=== PATIENT | male | born 1935 | race Caucasian/White ===

== ENCOUNTER 2018-11-30 19:08 | Inpatient (IN) | payer MEDICARE, MEDICAID ==
[~2018-11-30] VITALS: Ht 182.9 cm; Wt 74.8 kg
[2018-11-30] MEDS ORDERED: RANEXA500 MG ORAL (19:15)
[2018-11-30] MEDS ORDERED: RAPAFLO8 MG ORAL (19:15)
[2018-11-30] MEDS ORDERED: DEXILANT60 MG ORAL (19:15)
[2018-11-30] MEDS ORDERED: ASPIR 8181 MG ORAL (19:15)
[2018-11-30] MEDS ORDERED: DOCUSATE SODIU100 MG ORAL (19:15)
[2018-11-30] MEDS ORDERED: FERROUS SULFAT325 MG ORAL (19:15)
[2018-11-30] MEDS ORDERED: NITRO-BID30 GM TD (19:15)
[2018-11-30 19:25] VITALS: BP 112/72
--- NOTE | 2018-11-30 19:25 | NUR ---
ED Nurse Note: Patient was brought by [facility] from [facility], complaining of chest pain since this afternoon. AAO x4, VSS at this time, skin is dry, intact, warm to touch. Per patient he feels discomfort in his chest since this morning and later on it become worse. Will continue to monitor.
--- NOTE | 2018-11-30 19:27 | Emergency Room Report ---
History of Present Illness General Chief Complaint: Chest Pain Source: Patient, EMS Present Illness HPI This patient presents from a custodial facility. He has a history of peripheral vascular disease, hyperlipidemia, anxiety, dementia, GERD and hypothyroidism. He presents from a custodial facility after complaining of chest pain or one and a half hours prior to arrival. He was given nitroglycerin prior to arrival and had resolution of his symptoms. He currently has no complaints. He denies cough or congestion. He denies fever or chills. He denies nausea or vomiting. She denies abdominal pain. He has no other complaints. Allergies: Coded Allergies: No Known Allergies (Verified , 06/29/07) Patient History Past Medical History: see triage record, ulcer, GERD, GI bleed, psych hx, other - PVD, Hypothyroidism Social History: Denies: smoking, alcohol use, drug use Reviewed Nursing Documentation: PMH: Agreed; PSxH: Agreed Nursing Documentation-PMH Hx Hypertension: Yes Review of Systems All Other Systems: negative except mentioned in HPI Physical Exam Vital Signs Date Time Temp Pulse Resp B/P (MAP) Pulse Ox O2 Delivery O2 Flow Rate FiO2 11/30/18 19:04 97.9 84 22 112/72 98 Room Air Sp02 EP Interpretation: reviewed, normal General Appearance: no apparent distress, alert, GCS 15, non-toxic Head: normocephalic, atraumatic Eyes: bilateral eye normal inspection, bilateral eye PERRL ENT: hearing grossly normal, normal pharynx, no angioedema, normal voice Neck: full range of motion, supple/symm/no masses Respiratory: chest non-tender, lungs clear, normal breath sounds, no respiratory distress, no retraction, no accessory muscle use, speaking full sentences Cardiovascular #1: regular rate, rhythm, no edema Gastrointestinal: normal bowel sounds, non tender, soft, non-distended, no guarding, no rebound Rectal: deferred Musculoskeletal: back normal, normal range of motion, non-tender Neurologic: alert, oriented x3, responsive, motor strength/tone normal, sensory intact, speech normal Psychiatric: mood/affect normal, no suicidal/homicidal ideation Skin: normal color, no rash, warm/dry, well hydrated Medical Decision Making Diagnostic Impression: Primary Impression: Chest pain ER Course This patient presents with chest pain. He had complete resolution of his symptoms prior to arrival with nitroglycerin. I'm concerned this could be unstable angina. Initial workup to include chest x-ray, EKG and troponin were unremarkable. The patient will be admitted for rule out acute coronary syndrome. Laboratory Tests Test 11/30/18 19:25 11/30/18 20:15 White Blood Count 7.5 K/UL (4.8-10.8) Red Blood Count 4.39 M/UL (4.70-6.10) L Hemoglobin 12.2 G/DL (14.2-18.0) L Hematocrit 38.5 % (42.0-52.0) L Mean Corpuscular Volume 88 FL (80-99) Mean Corpuscular Hemoglobin 27.7 PG (27.0-31.0) Mean Corpuscular Hemoglobin Concent 31.6 G/DL (32.0-36.0) L Red Cell Distribution Width 19.4 % (11.6-14.8) H Platelet Count 281 K/UL (150-450) Mean Platelet Volume 5.8 FL (6.5-10.1) L Neutrophils (%) (Auto) 57.9 % (45.0-75.0) Lymphocytes (%) (Auto) 23.8 % (20.0-45.0) Monocytes (%) (Auto) 12.3 % (1.0-10.0) H Eosinophils (%) (Auto) 5.1 % (0.0-3.0) H Basophils (%) (Auto) 1.0 % (0.0-2.0) Prothrombin Time 10.9 SEC (9.30-11.50) Prothrombin Time INR 1.0 (0.9-1.1) PTT 25 SEC (23-33) Sodium Level 143 MMOL/L (136-145) Potassium Level 4.2 MMOL/L (3.5-5.1) Chloride Level 105 MMOL/L (98-107) Carbon Dioxide Level 30 MMOL/L (21-32) Anion Gap 8 mmol/L (5-15) Blood Urea Nitrogen 24 mg/dL (7-18) H Creatinine 1.2 MG/DL (0.55-1.30) Estimate Glomerular Filtration Rate mL/min (>60) Glucose Level 108 MG/DL (74-106) H Calcium Level 9.1 MG/DL (8.5-10.1) Total Bilirubin 0.4 MG/DL (0.2-1.0) Aspartate Amino Transferase (AST) 10 U/L (15-37) L Alanine Aminotransferase (ALT) 14 U/L (12-78) Alkaline Phosphatase 60 U/L (46-116) Total Creatine Kinase 27 U/L (26-308) Creatine Kinase MB 0.7 NG/ML (0.0-3.6) Creatine Kinase MB Relative Index 2.5 Troponin I 0.000 ng/mL (0.000-0.056) Total Protein 7.2 G/DL (6.4-8.2) Albumin 3.5 G/DL (3.4-5.0) Globulin 3.7 g/dL Albumin/Globulin Ratio 0.9 (1.0-2.7) L Urine Color Yellow Urine Appearance Clear Urine pH 5 (4.5-8.0) Urine Specific [place] 1.030 (1.005-1.035) Urine Protein Negative (NEGATIVE) Urine Glucose (UA) Negative (NEGATIVE) Urine Ketones 1+ (NEGATIVE) H Urine Blood Negative (NEGATIVE) Urine Nitrite Negative (NEGATIVE) Urine Bilirubin Negative (NEGATIVE) Urine Urobilinogen Normal MG/DL (0.0-1.0) Urine Leukocyte Esterase 1+ (NEGATIVE) H Urine RBC 0-2 /HPF (0 - 0) H Urine WBC 0-2 /HPF (0 - 0) Urine Squamous Epithelial Cells None /LPF (NONE/OCC) Urine Bacteria Few /HPF (NONE) EKG Diagnostic Results Rate: normal Rhythm: NSR ST Segments: no acute changes Rhythm Strip Diag. Results EP Interpretation: yes Rate: 80's Rhythm: NSR, no PVC's, no ectopy Chest X-Ray Diagnostic Results Chest X-Ray Diagnostic Results : Chest X-Ray Ordered: Yes # of Views/Limited/Complete: 1 View Indication: Chest Pain EP Interpretation: Yes Interpretation: no consolidation, no effusion, no pneumothorax, no acute cardiopulmonary disease Impression: No acute disease Electronically Signed by: DO Ho Noel Vital Signs Date Time Temp Pulse Resp B/P (MAP) Pulse Ox O2 Delivery O2 Flow Rate FiO2 11/30/18 19:04 97.9 84 22 112/72 98 Room Air Disposition: ADMITTED INPATIENT Condition: Serious Scripts Acetaminophen With Codeine (T#3) (TYLENOL #3 TAB*) Y Tab 1 TAB ORAL Q4H PRN for 10 Days, TAB Prov: Dayana Umaña MD 12/02/18 Chela Guzman DO Nov 30, 2018 19:27
[2018-11-30 19:55] LABS: ANION GAP 8 mmol/L (5-15); BLOOD UREA NITROGEN 24 mg/dL (7-18); CALCIUM 9.1 MG/DL (8.5-10.1); CARBON DIOXIDE 30 MMOL/L (21-32); CHLORIDE 105 MMOL/L (98-107); CREATININE 1.2 MG/DL (0.55-1.30); POTASSIUM 4.2 MMOL/L (3.5-5.1); SODIUM 143 MMOL/L (136-145)
[2018-11-30 19:59] LABS: EOSINOPHILS % (AUTO) 5.1 % (0.0-3.0); HEMATOCRIT 38.5 % (42.0-52.0); HEMOGLOBIN 12.2 G/DL (14.2-18.0); LYMPHOCYTES % (AUTO) 23.8 % (20.0-45.0); MEAN CORPUSCULAR VOLUME 88 FL (80-99); MONOCYTES % (AUTO) 12.3 % (1.0-10.0); NEUTROPHILS % (AUTO) 57.9 % (45.0-75.0); PLATELET COUNT 281 K/UL (150-450); RED BLOOD COUNT 4.39 M/UL (4.70-6.10); RED CELL DISTRIBUTION WIDTH 19.4 % (11.6-14.8); WHITE BLOOD COUNT 7.5 K/UL (4.8-10.8)
[2018-11-30 20:09] LABS: ALANINE AMINOTRANSFERASE 14 U/L (12-78); ALBUMIN 3.5 G/DL (3.4-5.0); ALBUMIN/GLOBULIN RATIO 0.9 (1.0-2.7); ALKALINE PHOSPHATASE 60 U/L (46-116); ASPARTATE AMINO TRANSFERASE 10 U/L (15-37); BILIRUBIN,TOTAL 0.4 MG/DL (0.2-1.0); CKMB 0.7 NG/ML (0.0-3.6); CREATINE KINASE 27 U/L (26-308)
[2018-11-30 20:51] LABS: APPEARANCE,URINE CLEAR; BILIRUBIN, URINE NEGATIVE (NEGATIVE); GLUCOSE, URINE (UA) NEGATIVE (NEGATIVE); KETONES,URINE 1+ (NEGATIVE); LEUKOCYTE ESTERASE ,URINE 1+ (NEGATIVE); NITRITE,URINE NEGATIVE (NEGATIVE); PH,URINE 5 (4.5-8.0); PROTEIN,URINE NEGATIVE (NEGATIVE); UROBILINOGEN,URINE NORMAL MG/DL (0.0-1.0)
[2018-11-30 20:54] LABS: COLOR,URINE YELLOW
--- NOTE | 2018-11-30 21:20 | NUR ---
ED Nurse Note: patient is in the bed sleeping, no acute s/s of acute disstress.
--- NOTE | 2018-11-30 21:53 | NUR ---
ED Nurse Note: tried to give report, CN asked to call in 5 min
[2018-11-30 21:54] VITALS: BP 130/75
[2018-11-30] MEDS ORDERED: Albuterol/Ipratropium 3ml neb HHN PRN (22:00)
[2018-11-30] MEDS ORDERED: dilTIAZem HCl 25mg/5ml Inj IV PRN (22:00)
[2018-11-30] MEDS ORDERED: Miralax 17gm pkt ORAL PRN (22:00)
[2018-11-30] MEDS ORDERED: Nitroglycerin Subl 0.4mg tab SL PRN (22:00)
[2018-11-30] MEDS ORDERED: Enalaprilat 2.5mg/2ml Inj IV PRN (22:00)
[2018-11-30] MEDS ORDERED: Morphine Sulfate 2mg/ml Inj(IV/IM USE ONLY) IVP PRN (22:00)
[2018-11-30] MEDS ORDERED: Ketorolac 30mg Inj IV PRN (22:00)
--- NOTE | 2018-11-30 22:00 | NUR ---
NURSE NOTES: Eda RN called to give report from ER on patient going to [phone]. Pending patient arrival on unit.
--- NOTE | 2018-11-30 22:25 | NUR ---
ED Nurse Note: Patient was admited to Tele. AAO x4, VSS at this time. Patient was transfered by ACLS protocole.
[2018-11-30 22:30] VITALS: BP 130/75
--- NOTE | 2018-11-30 22:30 | NUR ---
NURSE NOTES: Pt transferred from [facility] to [facility] with staff assist without incidence. gastroenterology nurse practitioner applied. Belongings list checked with transferring RN and patient at bedside. Pt is awake, alert, and oriented x4. Pt is on room air and breathing is even and unlabored. No acute distress noted. IV site is R AC #20g and is asymptomatic, patent, and intact. Pt provided with orientation to surroundings and hospital policies. Bed placed in lowest position with brake engaged, side rails up x3, and bed alarm on. Call light and side table placed within reach. Will continue to monitor.
[2018-11-30] MEDS ORDERED: MYRBETRIQ25 MG PO (23:51)
[2018-11-30] MEDS ORDERED: VITAMIN C500 M1 ORAL (23:51)
[2018-11-30] MEDS ORDERED: SYNTHROID25 MCG ORAL (23:51)
[2018-11-30] MEDS ORDERED: MOM30 ML ORAL (23:51)
[2018-11-30] MEDS ORDERED: ARICEPT10 MG ORAL (23:51)
[2018-11-30] MEDS ORDERED: SINGULAIR10 MG ORAL (23:51)
[2018-11-30] MEDS ORDERED: ABILIFY10 MG ORAL (23:51)
[2018-11-30] MEDS ORDERED: TYLENOL EXTRA500 MG ORAL (23:51)
[2018-11-30] MEDS ORDERED: COZAAR50 MG ORAL (23:51)
[2018-12-01] VITALS: BP 130/74
[2018-12-01 04:00] VITALS: BP 122/68
--- NOTE | 2018-12-01 06:52 | NUR ---
CASE MANAGEMENT:REVIEW 83 YR OLD MALE BIBA FROM [facility] CC: CHEST AND LT ARM PAIN SI:CHEST PAIN. ? 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
[2018-12-01 07:16] LABS: BASOPHILS % (AUTO) 0.8 % (0.0-2.0); EOSINOPHILS % (AUTO) 6.6 % (0.0-3.0); HEMATOCRIT 39.9 % (42.0-52.0); HEMOGLOBIN 12.7 G/DL (14.2-18.0); MEAN CORPUSCULAR VOLUME 89 FL (80-99); MONOCYTES % (AUTO) 11.7 % (1.0-10.0); NEUTROPHILS % (AUTO) 51.8 % (45.0-75.0); PLATELET COUNT 278 K/UL (150-450); RED CELL DISTRIBUTION WIDTH 19.7 % (11.6-14.8); WHITE BLOOD COUNT 6.6 K/UL (4.8-10.8)
--- NOTE | 2018-12-01 07:19 | NUR ---
HAND-OFF: Report given to Dany Menendez RN. Pt is sitting up in bed eating breakfast. Pt is in stable condition. No acute distress noted. Endorsed plan of care.
--- NOTE | 2018-12-01 07:20 | NUR ---
NURSE NOTES: Received report from Adamaris/RN, Patient awake eating breakfast, no distress/SOB noted. IV patent 20g SL @ right AC. Bed in low Position, Call light within reach. Will continue plan of care.
[2018-12-01 07:35] LABS: CHOLESTEROL 205 MG/DL (< 200); HDL CHOLESTEROL 60 MG/DL (40-60); TRIGLYCERIDES 53 MG/DL (30-150)
[2018-12-01 08:00] VITALS: BP 153/76
[2018-12-01] MEDS: Heparin 5000 units/ml inj SUBQ SCH ×2 (08:59→20:42)
[2018-12-01] MEDS: Aspirin Baby 81mg ORAL SCH (08:59)
--- NOTE | 2018-12-01 10:21 | Diagnostic Imaging Report ---
Indication: Chest pain Technique: One view of the chest Comparison: 10/17/2011 Findings: Inspiration is suboptimal, with crowding of the bronchovascular markings at the lung bases. The heart is borderline enlarged. It demonstrates a left ventricular hypertrophy configuration. No acute infiltrates, effusions, or congestion. Impression: No definite acute process Borderline cardiomegaly
--- NOTE | 2018-12-01 11:52 | Consultation ---
History of Present Illness General Date patient seen: Dec 01, 2018 Chief Complaint: Chest Pain Present Illness HPI GERD, GI bleed, psych hx, anxiety, dementia,, Hypothyroidism, BPH, peripheral vascular disease, presents from a [facility] facility with CC of chest pain for one and a half hours prior to arrival. He was given nitroglycerin prior to arrival and his chest pain improved. He currently has no complaints. He denies cough or congestion. Pt is at high risk of SC b/o hx of angina and PVD. He is admitted to telemetry for further evaluation. Allergies: Coded Allergies: No Known Allergies (Verified , 06/29/07) Medication History Scheduled Aripiprazole* (Abilify*), 10 MG ORAL DAILY, (Reported) Ascorbic Acid* (Vitamin C*), 500 MG ORAL DAILY, (Reported) Aspirin* (Aspir 81*), 81 MG ORAL DAILY, (Reported) Dexlansoprazole (Dexilant), 60 MG ORAL DAILY, (Reported) Docusate Sodium* (Docusate Sodium*), 100 MG ORAL THREE TIMES A DAY, (Reported) Donepezil Hcl* (Aricept*), 10 MG ORAL DAILY, (Reported) Ferrous Sulfate* (Ferrous Sulfate*), 325 MG ORAL DAILY, (Reported) Levothyroxine Sodium* (Synthroid*), 25 MCG ORAL DAILY, (Reported) Losartan Potassium* (Cozaar*), 50 MG ORAL DAILY, (Reported) Mirabegron (Myrbetriq), 25 MG PO DAILY, (Reported) Montelukast Sodium* (Singulair*), 10 MG ORAL DAILY, (Reported) Ranolazine* (Ranexa*), 500 MG ORAL EVERY 12 HOURS, (Reported) Silodosin (Rapaflo), 8 MG ORAL DAILY, (Reported) Scheduled PRN Acetaminophen* (Tylenol Extra Strength*), 500 MG ORAL Q6H PRN for Mild Pain/ Temp > 100.5, (Reported) Magnesium Hydroxide (Milk of Magnesia), 30 ML ORAL DAILY PRN for Constipation, ( Reported) Miscellaneous Medications Nitroglycerin (Nitro-Bid), 30 GM TD, (Reported) Patient History Healthcare decision maker N Resuscitation status Full Code Advanced Directive on File Past Medical/Surgical History Past Medical/Surgical History: (1) Adult hypothyroidism (2) Psychosis (3) GERD (gastroesophageal reflux disease) Review of Systems All Other Systems: negative except mentioned in HPI Physical Exam General Appearance: WD/WN, no apparent distress Lines, tubes and drains: peripheral HEENT: normocephalic, atraumatic Neck: non-tender, normal alignment Respiratory/Chest: chest wall non-tender, lungs clear Breasts: no masses Cardiovascular/Chest: normal peripheral pulses Abdomen: normal bowel sounds, non tender Skin Exam: normal pigmentation Last 24 Hour Vital Signs Date Time Temp Pulse Resp B/P (MAP) Pulse Ox O2 Delivery O2 Flow Rate FiO2 12/01/18 08:00 97.0 78 18 153/76 (101) 98 12/01/18 04:00 98.1 69 18 122/68 (86) 97 12/01/18 04:00 60 12/01/18 00:00 63 12/01/18 00:00 98.1 67 18 130/74 (92) 98 11/30/18 23:09 Nasal Cannula 2.0 11/30/18 22:30 98.1 73 18 130/75 (93) 99 11/30/18 22:20 98.0 73 15 130/75 99 Room Air 11/30/18 21:54 98.0 73 15 130/75 99 Room Air 11/30/18 19:25 84 22 Room Air 11/30/18 19:25 97.9 22 112/72 98 Room Air 11/30/18 19:04 97.9 84 22 112/72 98 Room Air Intake and Output 11/30/18 12/01/18 19:00 07:00 Output Total 400 ml Balance -400 ml Output Urine Total 400 ml # Voids 1 Laboratory Tests Test 11/30/18 19:25 11/30/18 20:15 12/01/18 05:58 White Blood Count 7.5 K/UL (4.8-10.8) 6.6 K/UL (4.8-10.8) Red Blood Count 4.39 M/UL (4.70-6.10) L 4.50 M/UL (4.70-6.10) L Hemoglobin 12.2 G/DL (14.2-18.0) L 12.7 G/DL (14.2-18.0) L Hematocrit 38.5 % (42.0-52.0) L 39.9 % (42.0-52.0) L Mean Corpuscular Volume 88 FL (80-99) 89 FL (80-99) Mean Corpuscular Hemoglobin 27.7 PG (27.0-31.0) 28.2 PG (27.0-31.0) Mean Corpuscular Hemoglobin Concent 31.6 G/DL (32.0-36.0) L 31.8 G/DL (32.0-36.0) L Red Cell Distribution Width 19.4 % (11.6-14.8) H 19.7 % (11.6-14.8) H Platelet Count 281 K/UL (150-450) 278 K/UL (150-450) Mean Platelet Volume 5.8 FL (6.5-10.1) L 6.7 FL (6.5-10.1) Neutrophils (%) (Auto) 57.9 % (45.0-75.0) 51.8 % (45.0-75.0) Lymphocytes (%) (Auto) 23.8 % (20.0-45.0) 29.0 % (20.0-45.0) Monocytes (%) (Auto) 12.3 % (1.0-10.0) H 11.7 % (1.0-10.0) H Eosinophils (%) (Auto) 5.1 % (0.0-3.0) H 6.6 % (0.0-3.0) H Basophils (%) (Auto) 1.0 % (0.0-2.0) 0.8 % (0.0-2.0) Prothrombin Time 10.9 SEC (9.30-11.50) 10.6 SEC (9.30-11.50) Prothromb Time International Ratio 1.0 (0.9-1.1) 1.0 (0.9-1.1) Activated Partial Thromboplast Time 25 SEC (23-33) 25 SEC (23-33) Sodium Level 143 MMOL/L (136-145) Potassium Level 4.2 MMOL/L (3.5-5.1) Chloride Level 105 MMOL/L (98-107) Carbon Dioxide Level 30 MMOL/L (21-32) Anion Gap 8 mmol/L (5-15) Blood Urea Nitrogen 24 mg/dL (7-18) H Creatinine 1.2 MG/DL (0.55-1.30) Estimat Glomerular Filtration Rate mL/min (>60) Glucose Level 108 MG/DL (74-106) H Calcium Level 9.1 MG/DL (8.5-10.1) Total Bilirubin 0.4 MG/DL (0.2-1.0) Aspartate Amino Transf (AST/SGOT) 10 U/L (15-37) L Alanine Aminotransferase (ALT/SGPT) 14 U/L (12-78) Alkaline Phosphatase 60 U/L (46-116) Total Creatine Kinase 27 U/L (26-308) Creatine Kinase MB 0.7 NG/ML (0.0-3.6) Creatine Kinase MB Relative Index 2.5 Troponin I 0.000 ng/mL (0.000-0.056) 0.011 ng/mL (0.000-0.056) Total Protein 7.2 G/DL (6.4-8.2) Albumin 3.5 G/DL (3.4-5.0) Globulin 3.7 g/dL Albumin/Globulin Ratio 0.9 (1.0-2.7) L Urine Color Yellow Urine Appearance Clear Urine pH 5 (4.5-8.0) Urine Specific [place] 1.030 (1.005-1.035) Urine Protein Negative (NEGATIVE) Urine Glucose (UA) Negative (NEGATIVE) Urine Ketones 1+ (NEGATIVE) H Urine Blood Negative (NEGATIVE) Urine Nitrite Negative (NEGATIVE) Urine Bilirubin Negative (NEGATIVE) Urine Urobilinogen Normal MG/DL (0.0-1.0) Urine Leukocyte Esterase 1+ (NEGATIVE) H Urine RBC 0-2 /HPF (0 - 0) H Urine WBC 0-2 /HPF (0 - 0) Urine Squamous Epithelial Cells None /LPF (NONE/OCC) Urine Bacteria Few /HPF (NONE) C-Reactive Protein, Quantitative < 0.4 mg/dL (0.00-0.90) Triglycerides Level 53 MG/DL (30-150) Cholesterol Level 205 MG/DL (< 200) H LDL Cholesterol 137 mg/dL (<100) H HDL Cholesterol 60 MG/DL (40-60) Cholesterol/HDL Ratio 3.4 (3.3-4.4) Thyroid Stimulating Hormone (TSH) 1.608 uiU/mL (0.358-3.740) Microbiology Date/Time Source Procedure Growth Status 11/30/18 20:55 Rectum Received Height (Feet): 6 Height (Inches): 10.00 Weight (Pounds): 165 Medications Current Medications Medications (Trade) Dose Ordered Sig/Anuel Route PRN Reason Start Time Stop Time Status Last Admin Dose Admin Acetaminophen (Tylenol) 650 mg Q4H PRN ORAL FEVER 11/30/18 22:00 12/30/18 21:59 Albuterol/ Ipratropium (Albuterol/ Ipratropium) 3 ml Q4H PRN HHN Shortness of Breath 11/30/18 22:00 12/05/18 21:59 Aspirin (ASA) 162 mg DAILY ORAL 12/01/18 09:00 12/31/18 08:59 12/01/18 08:59 Diltiazem HCl (Cardizem) 10 mg Q1H PRN IV heart rate more than 120, 11/30/18 22:00 12/30/18 21:59 Enalaprilat (Vasotec) 2.5 mg Q6H PRN IV sbp more than 160 11/30/18 22:00 12/30/18 21:59 Heparin Sodium (Porcine) (Heparin 5000 units/ml) 5,000 units EVERY 12 HOURS SUBQ 12/01/18 09:00 12/31/18 08:59 12/01/18 08:59 Ketorolac Tromethamine (Toradol 30mg) 30 mg Q6HR PRN IV moderate pain ( 4-6) 11/30/18 22:00 12/05/18 21:59 12/01/18 06:32 Morphine Sulfate (Morphine Sulfate) 2 mg Q4H PRN IVP severe Pain (Pain Scale 7-10) 11/30/18 22:00 12/07/18 21:59 Nitroglycerin (Ntg) 0.4 mg Q5M PRN SL Prn Chest Pain 11/30/18 22:00 12/30/18 21:59 Ondansetron HCl (Zofran) 4 mg Q6H PRN IVP Nausea & Vomiting 11/30/18 22:00 12/30/18 21:59 Polyethylene Glycol (Miralax) 17 gm DAILYPRN PRN ORAL Constipation 11/30/18 22:00 12/30/18 21:59 Temazepam (Restoril) 15 mg HSPRN PRN ORAL Insomnia 11/30/18 22:00 12/07/18 21:59 Assessment/Plan Problem List: (1) ACS (acute coronary syndrome) ICD Codes: I24.9 - Acute ischemic heart disease, unspecified SNOMED: 641263397 (2) Adult hypothyroidism ICD Codes: E03.9 - Hypothyroidism, unspecified SNOMED: 20833998 (3) Psychosis ICD Codes: F29 - Unspecified psychosis not due to a substance or known physiological condition SNOMED: 10695060 (4) GERD (gastroesophageal reflux disease) ICD Codes: K21.9 - Gastro-esophageal reflux disease without esophagitis SNOMED: 776798634 (5) BPH (benign prostatic hyperplasia) ICD Codes: N40.0 - Benign prostatic hyperplasia without lower urinary tract symptoms SNOMED: 830857115 (6) Overactive bladder ICD Codes: N32.81 - Overactive bladder SNOMED: 319811532 Assessment/Plan serial EKG, troponin echocardiogram symptomatic treatment check TSH check PSA dvt prophylaxis. Dayana Umaña MD Dec 01, 2018 11:51
[2018-12-01 12:00] VITALS: BP 138/83
--- NOTE | 2018-12-01 14:20 | NUR ---
PT EVALUATION NOTE Patient seen for initial evaluation, see complete evaluation for details. Patient presents with generalized weakness and mobility deficits. Patient will benefit from skilled inpatient PT intervention to address strength, balance, safety and functional mobility. Recommend return to SNF once cleared by MD. DME needs provided by SNF. Addendum: 12/01/18 at 1449 by FRANCES MARIE PT Amended: Links added.
[2018-12-01 16:00] VITALS: BP 141/80
--- NOTE | 2018-12-01 16:51 | Cardiology Progress Note ---
Assessment/Plan Assessment/Plan chest pain , lower post rib pain / tenderness htn hyperlipidemia dvt hs likey pain m/s as can be reproduced on palpation the post rib left torp neg ekg neg will have rib sereies echo venous duplex if neg woudl nto pursuit furtehr cardiac jones [id number] Objective Last 24 Hour Vital Signs Date Time Temp Pulse Resp B/P (MAP) Pulse Ox O2 Delivery O2 Flow Rate FiO2 12/01/18 12:00 97.9 73 20 138/83 (101) 97 12/01/18 09:00 Room Air 12/01/18 08:00 97.0 78 18 153/76 (101) 98 12/01/18 04:00 98.1 69 18 122/68 (86) 97 12/01/18 04:00 60 12/01/18 00:00 63 12/01/18 00:00 98.1 67 18 130/74 (92) 98 11/30/18 23:09 Nasal Cannula 2.0 11/30/18 22:30 98.1 73 18 130/75 (93) 99 11/30/18 22:20 98.0 73 15 130/75 99 Room Air 11/30/18 21:54 98.0 73 15 130/75 99 Room Air 11/30/18 19:25 84 22 Room Air 11/30/18 19:25 97.9 22 112/72 98 Room Air 11/30/18 19:04 97.9 84 22 112/72 98 Room Air Intake and Output 11/30/18 12/01/18 19:00 07:00 Output Total 400 ml Balance -400 ml Output Urine Total 400 ml # Voids 1 Laboratory Tests Test 11/30/18 19:25 11/30/18 20:15 12/01/18 05:58 White Blood Count 7.5 K/UL (4.8-10.8) 6.6 K/UL (4.8-10.8) Red Blood Count 4.39 M/UL (4.70-6.10) L 4.50 M/UL (4.70-6.10) L Hemoglobin 12.2 G/DL (14.2-18.0) L 12.7 G/DL (14.2-18.0) L Hematocrit 38.5 % (42.0-52.0) L 39.9 % (42.0-52.0) L Mean Corpuscular Volume 88 FL (80-99) 89 FL (80-99) Mean Corpuscular Hemoglobin 27.7 PG (27.0-31.0) 28.2 PG (27.0-31.0) Mean Corpuscular Hemoglobin Concent 31.6 G/DL (32.0-36.0) L 31.8 G/DL (32.0-36.0) L Red Cell Distribution Width 19.4 % (11.6-14.8) H 19.7 % (11.6-14.8) H Platelet Count 281 K/UL (150-450) 278 K/UL (150-450) Mean Platelet Volume 5.8 FL (6.5-10.1) L 6.7 FL (6.5-10.1) Neutrophils (%) (Auto) 57.9 % (45.0-75.0) 51.8 % (45.0-75.0) Lymphocytes (%) (Auto) 23.8 % (20.0-45.0) 29.0 % (20.0-45.0) Monocytes (%) (Auto) 12.3 % (1.0-10.0) H 11.7 % (1.0-10.0) H Eosinophils (%) (Auto) 5.1 % (0.0-3.0) H 6.6 % (0.0-3.0) H Basophils (%) (Auto) 1.0 % (0.0-2.0) 0.8 % (0.0-2.0) Prothrombin Time 10.9 SEC (9.30-11.50) 10.6 SEC (9.30-11.50) Prothromb Time International Ratio 1.0 (0.9-1.1) 1.0 (0.9-1.1) Activated Partial Thromboplast Time 25 SEC (23-33) 25 SEC (23-33) Sodium Level 143 MMOL/L (136-145) Potassium Level 4.2 MMOL/L (3.5-5.1) Chloride Level 105 MMOL/L (98-107) Carbon Dioxide Level 30 MMOL/L (21-32) Anion Gap 8 mmol/L (5-15) Blood Urea Nitrogen 24 mg/dL (7-18) H Creatinine 1.2 MG/DL (0.55-1.30) Estimat Glomerular Filtration Rate mL/min (>60) Glucose Level 108 MG/DL (74-106) H Calcium Level 9.1 MG/DL (8.5-10.1) Total Bilirubin 0.4 MG/DL (0.2-1.0) Aspartate Amino Transf (AST/SGOT) 10 U/L (15-37) L Alanine Aminotransferase (ALT/SGPT) 14 U/L (12-78) Alkaline Phosphatase 60 U/L (46-116) Total Creatine Kinase 27 U/L (26-308) Creatine Kinase MB 0.7 NG/ML (0.0-3.6) Creatine Kinase MB Relative Index 2.5 Troponin I 0.000 ng/mL (0.000-0.056) 0.011 ng/mL (0.000-0.056) Total Protein 7.2 G/DL (6.4-8.2) Albumin 3.5 G/DL (3.4-5.0) Globulin 3.7 g/dL Albumin/Globulin Ratio 0.9 (1.0-2.7) L Urine Color Yellow Urine Appearance Clear Urine pH 5 (4.5-8.0) Urine Specific [place] 1.030 (1.005-1.035) Urine Protein Negative (NEGATIVE) Urine Glucose (UA) Negative (NEGATIVE) Urine Ketones 1+ (NEGATIVE) H Urine Blood Negative (NEGATIVE) Urine Nitrite Negative (NEGATIVE) Urine Bilirubin Negative (NEGATIVE) Urine Urobilinogen Normal MG/DL (0.0-1.0) Urine Leukocyte Esterase 1+ (NEGATIVE) H Urine RBC 0-2 /HPF (0 - 0) H Urine WBC 0-2 /HPF (0 - 0) Urine Squamous Epithelial Cells None /LPF (NONE/OCC) Urine Bacteria Few /HPF (NONE) C-Reactive Protein, Quantitative < 0.4 mg/dL (0.00-0.90) Triglycerides Level 53 MG/DL (30-150) Cholesterol Level 205 MG/DL (< 200) H LDL Cholesterol 137 mg/dL (<100) H HDL Cholesterol 60 MG/DL (40-60) Cholesterol/HDL Ratio 3.4 (3.3-4.4) Thyroid Stimulating Hormone (TSH) 1.608 uiU/mL (0.358-3.740) Microbiology Date/Time Source Procedure Growth Status 11/30/18 20:55 Rectum Received Migue Sr MD Dec 01, 2018 16:51
--- NOTE | 2018-12-01 17:00 | History & Physical ---
History and Physical History & Physicial Dictated for Int Med-DR Carlos no. [id number]. Rodriguez Rodríguez MD Dec 01, 2018 17:00
--- NOTE | 2018-12-01 18:16 | Cardiology Report ---
APPROVED REPORT EXAM: Two-dimensional and M-mode echocardiogram with Doppler and color Doppler. INDICATION LV FUNCTION M-Mode DIMENSIONS IVSd0.9 (0.7-1.1cm)Left Atrium (MM)4.4 (1.6-4.0cm) LVDd5.4 (3.5-5.6cm)Aortic Root3.0 (2.0-3.7cm) PWd0.9 (0.7-1.1cm)Aortic Cusp Exc.1.4 (1.5-2.0cm) IVSs1.3 cm LVDs3.0 (2.5-4.0cm) PWs1.7 cm Normal left ventricular chamber size, systolic function and wall motion. Left ventricular ejection fraction estimated to be 60-65 %. Mild left ventricular hypertrophy by 2-D. Trivial pericardial effusion. All other cardiac chamber sizes are within normal limits. Focal aortic valve sclerosis with decreased cusp excursion. Thickened mitral valve leaflets with normal excursion. Mitral annulus and aortic root calcification. Normal pulmonic valve structure. Normal tricuspid valve structure. IVC at normal size with physiologic collapse. A color flow and spectral Doppler study was performed and revealed: No aortic regurgitation. Peak aortic valve gradient of 17 mm Hg and a mean of 8 mmHg.this maybe an underestimation of the severity whcih appear moderate at least based on 2 d images Aortic valve area 1.9 cm2 calculated by continuity equation. Trace mitral regurgitation. Mitral diastolic velocities suggest reduced left ventricular relaxation c/w mild LV diastolic dysfunction (Grade I ). Mild tricuspid regurgitation. Tricuspid systolic velocities suggests peak right ventricular systolic pressure of 24 mmHg.
--- NOTE | 2018-12-01 18:25 | Cardiology Report ---
APPROVED REPORT EKG Measurement Heart [id number] Normal sinus rhythm Left axis deviation Voltage criteria for left ventricular hypertrophy Abnormal ECG
--- NOTE | 2018-12-01 19:50 | NUR ---
HAND-OFF: Report given to Marlee/RN, Patient is awake, no distress/SOB noted at this time. Endorsed plan of care..
--- NOTE | 2018-12-01 19:55 | NUR ---
NURSE NOTES: Report received from EVELINA Spence. Pt is lying in semi-fowlers with no signs of distress. A+Ox4, denies SOB/pain. Respirations are even and unlabored on room air. IV site is patent, intact, and saline locked. Bed is at lowest position, brakes engaged, siderails x2, bed alarm on, and call light within reach. Pt is in stable condition at this time; will continue to monitor.
[2018-12-01 20:00] VITALS: BP 129/75
[2018-12-01] MEDS: Ranolazine 500mg tab ORAL SCH (20:40)
--- NOTE | 2018-12-01 21:30 | Consultation ---
DATE OF CONSULTATION: 12/01/2018 CARDIAC CONSULTATION CONSULTING PHYSICIAN: Migue Sr M.D. REFERRING PHYSICIAN: 1. Rei Carlos M.D. 2. Dayana Umaña M.D. REASON FOR REFERRAL: Chest pain. HISTORY OF PRESENT ILLNESS: The patient is an 83-year-old gentleman, who is a resident of [facility] facility was brought into the emergency room here at [facility] with the paramedics with a chief complaint of chest pain. Envelope Fold Operator run sheet was reviewed, indicated they found the patient lying in bed at the [facility]. Staff states the patient was stating that he has had some pressure type of chest pain and rated it at 7/10. The pain started at 1800 last night. He tells me that the pain started in the left lower back area. He is unable to provide any meaningful information about relieving or exacerbating factors but he is able to tell me that the pain has now become permanent and is present at the present time when he coughs or when he takes a deep breath, changes. He does not seem to think there is any change with walking or swallowing. He denies any shortness of breath. He uses two pillows. There is no PND. There is no dizziness on standing. There is no heart pounding or palpitations. Envelope Fold Operator run sheet indicated the patient denied any shortness of breath with them either and was speaking in full sentences. The patient denies any falls or any injuries to his rib area. PAST MEDICAL HISTORY: Positive for history [place] [facility] He does have a history coffee-grounds emesis recently for which he was evaluated by Dr. Bhandari for epigastric pain and upper GI bleed. 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 He was seen during that hospitalization by Dr. Bhandari as well as the psychiatrist. SOCIAL HISTORY: He indicates he has remote history of smoking many years ago but not recently. He used to drink alcoholic beverages but not recently. He is a resident of [facility]. ALLERGIES: No known drug allergies. REVIEW OF SYSTEMS: GASTROINTESTINAL: Denies any nausea, vomiting, diarrhea, but he does have constipation. GENITOURINARY: He has some issues with the Key catheter. PULMONARY: Denies any coughing or wheezing. CONSTITUTIONAL: Denies any fever, chills, or night sweats. MUSCULOSKELETAL: Pain in the back in the skeletal area, thorax with this pain that he has complained about. PHYSICAL EXAMINATION: GENERAL: Shows to be elderly gentleman, in no respiratory distress. NECK: Supple. No jugular venous distention. LUNGS: Appear to be clear to auscultation and percussion. CARDIAC: Regular rate and rhythm. No heaves, thrills, or gallops noted. The patient's chest wall posteriorly in the lower thoracic rib cage area is tender to palpation that seems to reproduce the patient's exact pain. ABDOMEN: Soft, nontender. Positive bowel sounds. EXTREMITIES: There is no clubbing, cyanosis, nor is there any edema. NEUROLOGICAL: He is awake, alert, responsive, and is capable of answering questions. LABORATORY AND DIAGNOSTIC DATA: White count of 6.6, hemoglobin 12.7, and platelet count of 278. Sodium is 143, potassium 4.2, chloride 105, bicarb 32, BUN of 24, creatinine 1.2. Liver function tests are normal. Troponins on two separate occasions are negative. CRP less than 0.4 and TSH of 1.6. Coags, INR of 1 and PTT of 25. Urinalysis appears to be relatively normal. There was no D-dimer noted on this laboratory values. Chest x-ray, usually shows no definitive acute processes, borderline cardiomegaly was noted. EKG sinus rhythm, some voltage criteria for left ventricular hypertrophy, leftward axis, no ST-T wave abnormalities. ASSESSMENT AND PLAN: 1. Lower thoracic rib pain radiating anteriorly. 2. History of recent gastrointestinal bleed. 3. History of peripheral vascular disease. 4. History of hypertension. 5. History of hyperlipidemia. 6. Chronic deep venous thromboses. 7. Delusional disorder. This patient was seen in cardiac consultation. Two sets of cardiac enzymes are negative. EKG is negative. We will have an echocardiogram. His chest x-ray was read by the radiologist. No really significant evidence of bony abnormalities. In fact, no information about the bone was noted on that. The patient does not have any history of any trauma to this area but he clearly is exclusively tender in that area that he has been complaining about which makes the pain highly suspicious for skeletal pain. Rib series will be ordered; however, an EKG will be ordered as well as an echocardiogram and if those are negative, I would probably not pursue any further. Migue Sr M.D. DR: Dorian JOB#: [id number] CC:
--- NOTE | 2018-12-01 22:30 | History and Physical Report ---
DATE OF ADMISSION: 11/30/2018 CHIEF COMPLAINT: The patient is an 83-year-old white male, who presents with a chief complaint of chest pain. HISTORY OF PRESENT ILLNESS: The patient is a resident of [facility]. The patient states he has been having chest pain on and off for the last 3 days. The patient states he began to experience chest pain today after "intensive" physical therapy. The patient was transferred to [facility] for evaluation. The patient is admitted for chest pain to rule out acute coronary syndrome. REVIEW OF SYSTEMS: CONSTITUTIONAL: The patient denies weight loss or weight gain. The patient denies fevers or chills. HEENT: The patient denies ear or throat pain. The patient denies headache. CARDIOVASCULAR: The patient complains of chest pain as above. The patient denies palpitations. ABDOMEN: The patient denies nausea, vomiting, diarrhea, or constipation. GENITOURINARY: The patient denies dysuria or increased frequency of urination. NEUROMUSCULAR: The patient denies seizures or generalized weakness. PAST MEDICAL HISTORY: Significant for, 1. Hypertension. 2. Hypothyroidism. 3. Hypercholesterolemia. 4. Peripheral vascular disease. 5. History of gastrointestinal hemorrhage. 6. Deep venous thrombosis of the leg. 7. Gastroesophageal reflux disease. PAST SURGICAL HISTORY: Significant for appendectomy. CURRENT MEDICATIONS: 1. Singulair 10 mg p.o. daily. 2. Synthroid 25 mcg p.o. daily. 3. Aricept 10 mg p.o. daily. 4. Aspirin 81 mg p.o. daily. 5. Rapaflo 8 mg p.o. daily. 6. Abilify 10 mg p.o. daily. 7. Dexilant 60 mg p.o. daily. 8. Ranexa 500 mg one tablet p.o. twice daily. 9. Tylenol 500 mg p.o. q.6 hours p.r.n. 10. Nitroglycerin p.r.n. chest pain. 11. Iron sulfate 325 mg p.o. 3 times daily. 12. Cozaar 50 mg p.o. daily. 13. Mirabegron 25 mg p.o. daily. ALLERGIES: No known drug allergies. SOCIAL HISTORY: The patient is . The patient denies tobacco or alcohol use. PHYSICAL EXAMINATION: VITAL SIGNS: Temperature 98.1, respirations 18, pulse 63, and blood pressure 130/74. GENERAL: The patient is a well-developed and well-nourished white male, in no apparent distress. HEENT: Eyes, pupils are equal and responsive to light and accommodation. Extraocular movements are intact. NECK: Supple without lymphadenopathy. CHEST: Lungs are clear to auscultation bilaterally without wheezes or rales. CARDIOVASCULAR: Regular rhythm and rate. S1 and S2 are normal without murmurs, rubs, or gallops. ABDOMEN: Soft, nontender, and nondistended. Positive bowel sounds. No evidence of hepatosplenomegaly. Currently, no rebound or guarding noted. EXTREMITIES: Negative for clubbing, cyanosis, or edema. RECTAL/GENITAL: Refused. NEUROLOGIC: Cranial nerves II through XII are grossly intact without focal deficits. Motor strength is 5/5 bilaterally. Deep tendon reflexes are 2+ plantar. DIAGNOSTIC DATA: An EKG demonstrated normal sinus rhythm at approximately 80 beats per minute. There are no acute ST-T changes or Q-waves noted. LABORATORY STUDIES: WBC 7.5, hemoglobin 12.2, hematocrit 30.5, and platelets 281,000. Sodium 143, potassium 4.2, chloride 105, CO2 30, BUN 24, creatinine 1.2, and glucose 108. Troponin 0.0. ASSESSMENT: This is an 83-year-old white male. 1. Chest pain. 2. Hypertension. 3. Hypercholesterolemia. 4. Hypothyroidism. 5. Peripheral vascular disease. 6. Gastroesophageal reflux disease. 7. History of deep venous thrombosis of the leg. 8. Benign prostatic hypertrophy. 9. Alzheimer's dementia. TREATMENT: 1. Chest pain. A Cardiology consultation has been obtained with Dr. Migue Sr. We will follow recommendations of Cardiology. An echocardiogram is pending. A Cardiolite stress test is pending. 2. Hypertension. Continue Cozaar as above. 3. Hypercholesterolemia. 4. Hypothyroidism. Continue Synthroid as above. 5. Peripheral vascular disease. 6. Gastroesophageal reflux disease. Continue Dexilant as above. The patient has a history of gastrointestinal hemorrhage. 7. Deep venous thrombosis of the legs. 8. Benign prostatic hypertrophy. Continue Rapaflo as above. 9. Alzheimer's dementia. Continue Aricept as above. Rodriguez Rodríguez M.D. DR: MERI JOB#: [id number] CC:
[2018-12-02] VITALS: BP 137/82
[2018-12-02 04:00] VITALS: BP 132/80
[2018-12-02 06:21] LABS: BASOPHILS % (AUTO) 0.9 % (0.0-2.0); EOSINOPHILS % (AUTO) 7.9 % (0.0-3.0); HEMATOCRIT 37.3 % (42.0-52.0); HEMOGLOBIN 11.9 G/DL (14.2-18.0); MEAN CORPUSCULAR VOLUME 88 FL (80-99); MONOCYTES % (AUTO) 10.9 % (1.0-10.0); NEUTROPHILS % (AUTO) 53.3 % (45.0-75.0); PLATELET COUNT 257 K/UL (150-450); RED BLOOD COUNT 4.25 M/UL (4.70-6.10); RED CELL DISTRIBUTION WIDTH 19.5 % (11.6-14.8); WHITE BLOOD COUNT 5.4 K/UL (4.8-10.8)
[2018-12-02] MEDS ORDERED: Levothyroxine 25mcg tab ORAL SCH (06:30)
[2018-12-02 07:06] LABS: ANION GAP 8 mmol/L (5-15); BLOOD UREA NITROGEN 30 mg/dL (7-18); CALCIUM 8.6 MG/DL (8.5-10.1); CARBON DIOXIDE 27 MMOL/L (21-32); CHLORIDE 105 MMOL/L (98-107); CREATININE 1.1 MG/DL (0.55-1.30); POTASSIUM 4.1 MMOL/L (3.5-5.1); SODIUM 140 MMOL/L (136-145)
--- NOTE | 2018-12-02 07:50 | NUR ---
HAND-OFF: Report given to EVELINA Schuster. Pt is in stable condition; plan of care endorsed.
--- NOTE | 2018-12-02 07:51 | NUR ---
NURSE NOTES: Report received from EVELINA Whalen. Pt is lying in semi-fowlers with no signs and symptoms of distress at this time. Confused and trying to stand up, keep reminding him to stay in bed. Respirations are even and unlabored on room air. Bed is at lowest position, brakes engaged, side rails x2, bed alarm on, call light and bed side table within reach. Will continue to monitor and follow plan of care.
[2018-12-02 08:00] VITALS: BP 147/67
[2018-12-02] MEDS ORDERED: Losartan 50mg tab ORAL SCH (09:00)
[2018-12-02] MEDS ORDERED: Donepezil 10mg tab ORAL SCH (09:00)
[2018-12-02] MEDS ORDERED: ARIPiprazole 10mg tab ORAL SCH (09:00)
[2018-12-02] MEDS: Ranolazine 500mg tab ORAL SCH (09:01)
[2018-12-02] MEDS: Aspirin Baby 81mg ORAL SCH (09:01)
[2018-12-02] MEDS: Heparin 5000 units/ml inj SUBQ SCH (09:04)
--- NOTE | 2018-12-02 11:32 | Diagnostic Imaging Report ---
Indication: Bilateral rib pain Technique: 3 views of the bilateral ribs Comparison: No comparison radiographs. Reference made to chest radiograph dated 11/30/2018 Findings: There are fracture deformities, probably acute, of the left anterolateral eighth and ninth ribs. No right rib fractures are demonstrated. No pneumothorax. Incidentally noted is an inferior vena cava filter. There are degenerative changes of the spine Impression: Positive for left anterolateral eighth and ninth rib fractures No pneumothorax Inferior vena cava filter incidentally noted
--- NOTE | 2018-12-02 11:56 | Pulmonology Progress Note ---
Assessment/Plan Problems: (1) ACS (acute coronary syndrome) (2) Adult hypothyroidism (3) Psychosis (4) GERD (gastroesophageal reflux disease) (5) BPH (benign prostatic hyperplasia) (6) Overactive bladder Assessment/Plan Impression: Positive for left anterolateral eighth and ninth rib fractures symptomatic treatment monitor BP [id number] dc planning Subjective ROS Limited/Unobtainable: No Constitutional: Reports: no symptoms HEENT: Repors: no symptoms Respiratory: Reports: no symptoms Allergies: Coded Allergies: No Known Allergies (Verified , 06/29/07) Objective Last 24 Hour Vital Signs Date Time Temp Pulse Resp B/P (MAP) Pulse Ox O2 Delivery O2 Flow Rate FiO2 12/02/18 09:01 147/67 12/02/18 09:00 Room Air 12/02/18 08:00 98.1 67 20 147/67 (93) 98 12/02/18 04:00 73 12/02/18 04:00 97.5 71 18 132/80 (97) 97 12/02/18 00:00 98.1 81 18 137/82 (100) 95 12/02/18 00:00 78 12/01/18 21:00 Room Air 12/01/18 20:10 85 12/01/18 20:05 79 12/01/18 20:00 98.2 78 18 129/75 (93) 96 12/01/18 20:00 74 12/01/18 20:00 90 12/01/18 16:00 76 12/01/18 16:00 97.5 78 18 141/80 (100) 96 12/01/18 12:00 97.9 73 20 138/83 (101) 97 12/01/18 12:00 77 Intake and Output 12/01/18 12/02/18 19:00 07:00 Intake Total 360 ml 100 ml Output Total 350 ml 600 ml Balance 10 ml -500 ml Intake Oral 360 ml 100 ml Output Urine Total 350 ml 600 ml # Voids 2 General Appearance: cachetic HEENT: normocephalic, atraumatic Respiratory/Chest: chest wall non-tender, lungs clear Cardiovascular: normal peripheral pulses, normal rate Abdomen: normal bowel sounds, soft, non tender Genitourinary: normal external genitalia Microbiology Date/Time Source Procedure Growth Status 11/30/18 20:55 Nasal Nares MRSA Culture - Final NO METHICILLIN RESISTANT STAPH AUREUS... Complete 11/30/18 20:55 Rectum Received Laboratory Tests 12/02/18 06:05: White Blood Count 5.4, Red Blood Count 4.25L, Hemoglobin 11.9L, Hematocrit 37.3L , Mean Corpuscular Volume 88, Mean Corpuscular Hemoglobin 28.0, Mean Corpuscular Hemoglobin Concent 31.8L, Red Cell Distribution Width 19.5H, Platelet Count 257, Mean Platelet Volume 6.5, Neutrophils (%) (Auto) 53.3, Lymphocytes (%) (Auto) 27.0, Monocytes (%) (Auto) 10.9H, Eosinophils (%) (Auto) 7.9H, Basophils (%) (Auto) 0.9, Sodium Level 140, Potassium Level 4.1, Chloride Level 105, Carbon Dioxide Level 27, Anion Gap 8, Blood Urea Nitrogen 30H, Creatinine 1.1, Estimat Glomerular Filtration Rate , Glucose Level 86, Calcium Level 8.6, Troponin I 0.007 Current Medications Medications (Trade) Dose Ordered Sig/Anuel Route PRN Reason Start Time Stop Time Status Last Admin Dose Admin Acetaminophen (Tylenol) 650 mg Q4H PRN ORAL FEVER 11/30/18 22:00 12/30/18 21:59 Albuterol/ Ipratropium (Albuterol/ Ipratropium) 3 ml Q4H PRN HHN Shortness of Breath 11/30/18 22:00 12/05/18 21:59 Aripiprazole (Abilify) 10 mg DAILY ORAL 12/02/18 09:00 01/01/19 08:59 12/02/18 09:01 Aspirin (ASA) 162 mg DAILY ORAL 12/01/18 09:00 12/31/18 08:59 12/02/18 09:01 Diltiazem HCl (Cardizem) 10 mg Q1H PRN IV heart rate more than 120, 11/30/18 22:00 12/30/18 21:59 Donepezil HCl (Aricept) 10 mg DAILY ORAL 12/02/18 09:00 01/01/19 08:59 12/02/18 09:01 Enalaprilat (Vasotec) 2.5 mg Q6H PRN IV sbp more than 160 11/30/18 22:00 12/30/18 21:59 Heparin Sodium (Porcine) (Heparin 5000 units/ml) 5,000 units EVERY 12 HOURS SUBQ 12/01/18 09:00 12/31/18 08:59 12/02/18 09:04 Ketorolac Tromethamine (Toradol 30mg) 30 mg Q6HR PRN IV moderate pain ( 4-6) 11/30/18 22:00 12/05/18 21:59 12/01/18 06:32 Levothyroxine Sodium (Synthroid) 25 mcg ACBREAKFAST ORAL 12/02/18 06:30 01/01/19 06:29 12/02/18 05:46 Losartan Potassium (Cozaar) 50 mg DAILY ORAL 12/02/18 09:00 01/01/19 08:59 12/02/18 09:01 Morphine Sulfate (Morphine Sulfate) 2 mg Q4H PRN IVP severe Pain (Pain Scale 7-10) 11/30/18 22:00 12/07/18 21:59 Nitroglycerin (Ntg) 0.4 mg Q5M PRN SL Prn Chest Pain 11/30/18 22:00 12/30/18 21:59 Ondansetron HCl (Zofran) 4 mg Q6H PRN IVP Nausea & Vomiting 11/30/18 22:00 12/30/18 21:59 Polyethylene Glycol (Miralax) 17 gm DAILYPRN PRN ORAL Constipation 11/30/18 22:00 12/30/18 21:59 Ranolazine (Ranexa ER 500mg) 500 mg EVERY 12 HOURS ORAL 12/01/18 21:00 12/31/18 20:59 12/02/18 09:01 Temazepam (Restoril) 15 mg HSPRN PRN ORAL Insomnia 11/30/18 22:00 12/07/18 21:59 Dayana Umaña MD Dec 02, 2018 11:56
[2018-12-02] MEDS ORDERED: ACETAMINOPHEN-1 EAC1 ORAL (11:58)
[2018-12-02 12:00] VITALS: BP 149/79
--- NOTE | 2018-12-02 12:24 | NUR ---
DISCHARGE PLANNING DISCHARGE ORDER NOTED FAXED CLINICALS TO [facility] T: [phone] AWAIT ROOM NUMBER
--- NOTE | 2018-12-02 13:07 | NUR ---
DISCHARGE PLANNED PATIENT WILL RETURN TO [facility] ROOM 15A SKILLED T: [phone] FOR NURSE TO NURSE REPORT [facility] HAS BEEN ARRANGED FOR 1500 CUSTOMER RELATIONS SPECIALIST
--- NOTE | 2018-12-02 14:08 | NUR ---
NURSE NOTES: Patient is discharged to [facility] per Chasidy AZUL's order. Called to [facility] and report given to EVELINA Albert. Patient received a new prescription. All belongings returned to patient. Heart monitor removed and returned to news gathering technician.
[2018-12-02 16:00] VITALS: BP 154/87
--- NOTE | 2018-12-02 17:30 | NUR ---
NURSE NOTES: Patient DCed from IV, he went to [facility] with [facility] in stable condition.
--- NOTE | 2018-12-02 18:37 | Internal Med Progress Note ---
Subjective Date of Service: Dec 02, 2018 Physician Name Rodriguez Rodríguez Attending Physician Rei Carlos MD Allergies: Coded Allergies: No Known Allergies (Verified , 06/29/07) ROS Limited/Unobtainable: No Constitutional: Reports: no symptoms HEENT: Reports: no symptoms Cardiovascular: Reports: chest pain Respiratory: Reports: no symptoms Gastrointestinal/Abdominal: Reports: no symptoms Genitourinary: Reports: no symptoms Neurologic/Psychiatric: Reports: no symptoms Subjective 83 YO M admitted with chest pain. Now rib fractures. Cover for Int Med-Dr Carlos Objective Last Vital Signs Date Time Temp Pulse Resp B/P (MAP) Pulse Ox O2 Delivery O2 Flow Rate FiO2 12/02/18 16:00 98.1 59 20 154/87 (109) 98 12/02/18 09:00 Room Air 11/30/18 23:09 2.0 Laboratory Tests Test 12/02/18 06:05 White Blood Count 5.4 K/UL (4.8-10.8) Red Blood Count 4.25 M/UL (4.70-6.10) L Hemoglobin 11.9 G/DL (14.2-18.0) L Hematocrit 37.3 % (42.0-52.0) L Mean Corpuscular Volume 88 FL (80-99) Mean Corpuscular Hemoglobin 28.0 PG (27.0-31.0) Mean Corpuscular Hemoglobin Concent 31.8 G/DL (32.0-36.0) L Red Cell Distribution Width 19.5 % (11.6-14.8) H Platelet Count 257 K/UL (150-450) Mean Platelet Volume 6.5 FL (6.5-10.1) Neutrophils (%) (Auto) 53.3 % (45.0-75.0) Lymphocytes (%) (Auto) 27.0 % (20.0-45.0) Monocytes (%) (Auto) 10.9 % (1.0-10.0) H Eosinophils (%) (Auto) 7.9 % (0.0-3.0) H Basophils (%) (Auto) 0.9 % (0.0-2.0) Sodium Level 140 MMOL/L (136-145) Potassium Level 4.1 MMOL/L (3.5-5.1) Chloride Level 105 MMOL/L (98-107) Carbon Dioxide Level 27 MMOL/L (21-32) Anion Gap 8 mmol/L (5-15) Blood Urea Nitrogen 30 mg/dL (7-18) H Creatinine 1.1 MG/DL (0.55-1.30) Estimat Glomerular Filtration Rate mL/min (>60) Glucose Level 86 MG/DL (74-106) Calcium Level 8.6 MG/DL (8.5-10.1) Troponin I 0.007 ng/mL (0.000-0.056) Microbiology Date/Time Source Procedure Growth Status 11/30/18 20:55 Nasal Nares MRSA Culture - Final NO METHICILLIN RESISTANT STAPH AUREUS... Complete 11/30/18 20:55 Rectum Received Intake and Output 12/01/18 12/02/18 19:00 07:00 Intake Total 360 ml 100 ml Output Total 350 ml 600 ml Balance 10 ml -500 ml Intake Oral 360 ml 100 ml Output Urine Total 350 ml 600 ml # Voids 2 Objective PHYSICAL EXAMINATION: GENERAL: The patient is a well-developed and well-nourished white male, in no apparent distress. HEENT: Eyes, pupils are equal and responsive to light and accommodation. Extraocular movements are intact. NECK: Supple without lymphadenopathy. CHEST: Lungs are clear to auscultation bilaterally without wheezes or rales. CARDIOVASCULAR: Regular rhythm and rate. S1 and S2 are normal without murmurs, rubs, or gallops. ABDOMEN: Soft, nontender, and nondistended. Positive bowel sounds. No evidence of hepatosplenomegaly. Currently, no rebound or guarding noted. EXTREMITIES: Negative for clubbing, cyanosis, or edema. RECTAL/GENITAL: Refused. NEUROLOGIC: Cranial nerves II through XII are grossly intact without focal deficits. Motor strength is 5/5 bilaterally. Deep tendon reflexes are 2+ plantar. Assessment/Plan Assessment/Plan ASSESSMENT: This is an 83-year-old white male. 1. Chest pain. 2. Hypertension. 3. Hypercholesterolemia. 4. Hypothyroidism. 5. Peripheral vascular disease. 6. Gastroesophageal reflux disease. 7. History of deep venous thrombosis of the leg. 8. Benign prostatic hypertrophy. 9. Alzheimer's dementia. 10. fracture 8th and 9th ribs TREATMENT: 1. Chest pain. A Cardiology consultation has been obtained with Dr. Migue Sr. We will follow recommendations of Cardiology. An echocardiogram is pending. A Cardiolite stress test is pending. 2. Hypertension. Continue Cozaar as above. 3. Hypercholesterolemia. 4. Hypothyroidism. Continue Synthroid as above. 5. Peripheral vascular disease. 6. Gastroesophageal reflux disease. Continue Dexilant as above. The patient has a history of gastrointestinal hemorrhage. 7. Deep venous thrombosis of the legs. 8. Benign prostatic hypertrophy. Continue Rapaflo as above. 9. Alzheimer's dementia. Continue Aricept as above. 10. Rib belt; pain management 11. Discharge to [facility] today Rodriguez Rodríguez MD Dec 02, 2018 18:36
--- NOTE | 2018-12-03 05:42 | Discharge Summary ---
Discharge Summary Discharge Summary _ DATE OF ADMISSION: 11/30/2018 DATE OF DISCHARGE: 12/02/2018 ADMITTING MD: Dr. Rei Carlos DISCHARGED BY: Dr. Dayana Umaña CONSULTANTS: Dr. Dayana Sr [facility] COURSE: Patient is an 83-year-old male, who presented to ED with chief complaint of chest pain. Patient is a resident of [facility]. The patient had chest pain on and off for 3 days. He he stated he began to experience chest pain after "intensive physical therapy." He has medical history significant for hypertension, hypothyroidism, hypercholesterolemia, peripheral vascular disease, history of GI hemorrhage, DVT of the leg and GERD. He was then taken to [facility] for further evaluation. On evaluation at ED, vital signs were stable. He had complete resolution of symptoms prior to arrival with relief of symptoms with nitroglycerin. Blood work did not show any leukocytosis, hemoglobin 12, hematocrit 38. Electrolytes were normal. Troponin negative. CK-MB negative. Urinalysis with 1+ leukocyte esterase, negative nitrite, 1+ ketone, 0-2 RBC and 0-2 WBC. He had an EKG that showed normal sinus rhythm with no acute changes. Chest x-ray did not show any definite acute process. Due to his risk factors, there was concern for unstable angina. He was admitted for evaluation of ACS. Cardiac enzymes were monitored. He was given aspirin and nitroglycerin. Echocardiogram showed left ventricular ejection fraction 60-65%. Lipid panel was checked. Total cholesterol 205, LDL 137, HDL 60. Thyroid function test was normal. He was continued on levothyroxine 25 mcg. He was given Cozaar for blood pressure control. He complained of pain on the left posterior rib. Pain was reproduced on palpation. Cardiac enzymes were negative. Pain likely musculoskeletal. Rib series showed positive fractures on the left anterolateral eighth and ninth rib. There was no pneumothorax. He was given PT. He was recommended to wear a rib belt. Venous duplex was negative for acute DVT. He was discharged back to alf. FINAL DIAGNOSES: Chest pain secondary to fracture on the eighth and ninth left rib Hypertension Hypercholesterolemia Hypothyroidism Peripheral vascular disease GERD History of DVT of the leg BPH Alzheimer's dementia DISPOSITION: Patient was discharged to a SNF. DISCHARGE MEDICATIONS: Refer to Discharge Medication List. I have been assigned to complete a discharge summary on this account, I was not involved with the patient's management. Shelley Black NP Dec 03, 2018 05:42
--- NOTE | 2018-12-03 16:25 | Diagnostic Imaging Report ---
APPROVED REPORT CPT Code: 58510 Present Symptoms Comments: BILATERAL LEGS PAIN. BILATERAL: Imaging reveals a patent deep venous system bilaterally. There is no evidence of thrombus within the femoral, popliteal or tibial segments. The greater saphenous veins are also within normal limits. Doppler indicates normal spontaneous flow within these segments.
--- NOTE | 2018-12-03 19:52 | NUR ---
SKIP HOIST ENGINEER Co-Signature Notes: Reviewed patient's chart. Reviewed and approved SKIP HOIST ENGINEER notes. Addendum: 12/03/18 at 1953 by MG BERGERON PT Amended: Links added.
== END 2018-12-02 17:42 | DRG 184 ==
LOC: EDBD 19:08 → EMR 19:45 → 2E 20:35 → EDBEDREQ 21:07 → 2E 21:56
DX: S22.42XA Multiple fractures of ribs, left side, initial encounter for closed fracture (principal); I82.509 Chronic embolism and thrombosis of unspecified deep veins of unspecified lower extremity; F22 Delusional disorders; I10 Essential (primary) hypertension; E03.9 Hypothyroidism, unspecified; I73.9 Peripheral vascular disease, unspecified; K21.9 Gastro-esophageal reflux disease without esophagitis; E78.00 Pure hypercholesterolemia, unspecified; N40.0 Benign prostatic hyperplasia without lower urinary tract symptoms; G30.9 Alzheimer's disease, unspecified; F02.80 Dementia in other diseases classified elsewhere, unspecified severity, without behavioral disturbance, psychotic disturbance, mood disturbance, and anxiety; X58.XXXA Exposure to other specified factors, initial encounter
CPT/HCPCS: 36415; 71045; 71110; 80048; 80053; 80061; 81003; 82550; 82553; 84443; 84484; 85025; 85610; 85730; 86140; 87081; 93005; 93306; 93970; 99285